=== PATIENT | female | born 1985 | race Two or more races ===

== ENCOUNTER 2019-12-25 13:24 | Emergency (ER) | payer OTHER, MEDICAID ==
[~2019-12-25] VITALS: Ht 170.2 cm; Wt 59.0 kg
[2019-12-25 13:36] VITALS: BP 182/89
== END 2019-12-25 14:56 | disposition home or self-care (01) ==
LOC: EDBD 13:24 → EDUNIT# 13:24 → ER 13:24
DX: S16.1XXA Strain of muscle, fascia and tendon at neck level, initial encounter (principal); S29.012A Strain of muscle and tendon of back wall of thorax, initial encounter; V43.52XA Car driver injured in collision with other type car in traffic accident, initial encounter; Y93.89 Activity, other specified; Y92.488 Other paved roadways as the place of occurrence of the external cause; Y99.8 Other external cause status
CPT/HCPCS: 72040; 72070

== ENCOUNTER 2021-02-25 07:49 | Emergency (ER) | payer MEDICAID, OTHER ==
[~2021-02-25] VITALS: Ht 167.6 cm; Wt 77.1 kg
[2021-02-25 08:14] VITALS: BP 131/89
[2021-02-25] MEDS ORDERED: LIDOCAINE 1% HCL (LOCAL ANESTH.) INJ 20ML MDV IJ ONE (08:15)
[2021-02-25] MEDS ORDERED: TETANUS-DIPTH-ACEL PERTUSSIS 0.5ML SYR Tdap IM ONE (08:30)
== END 2021-02-25 09:02 | disposition home or self-care (01) ==
LOC: ER 07:49
DX: O26.891 Other specified pregnancy related conditions, first trimester (principal); S01.511A Laceration without foreign body of lip, initial encounter; Z88.8 Allergy status to other drugs, medicaments and biological substances; Z3A.11 11 weeks gestation of pregnancy; Y04.2XXA Assault by strike against or bumped into by another person, initial encounter; Y93.89 Activity, other specified; Y92.89 Other specified places as the place of occurrence of the external cause; Y99.8 Other external cause status
CPT/HCPCS: 12013; 90471; 90715; 99283; J2001

== ENCOUNTER 2021-07-15 08:40 | Observation (INO) | payer MEDICAID ==
[~2021-07-15] VITALS: Ht 167.6 cm; Wt 61.2 kg
[2021-07-15] MEDS: TERBUTALINE SULFATE 1 MG/ML 1ML VIAL SC SCH ×2 (09:12→10:00)
[2021-07-15] MEDS ORDERED: PREN-96 PO (09:56)
== END 2021-07-15 10:35 | disposition home or self-care (01) ==
LOC: LDRP 08:40
PROVIDERS: ADMIT Obstetrics & Gynecology; ATTEND Obstetrics & Gynecology
DX: O60.03 Preterm labor without delivery, third trimester (principal); Z3A.31 31 weeks gestation of pregnancy
CPT/HCPCS: 59025; 81002; 94760; 96372; G0378; G0379; J3105

== ENCOUNTER 2021-08-25 21:54 | Observation (INO) | payer MEDICAID ==
[~2021-08-25 21:54] MED LIST: PREN-96 PO
== END 2021-08-25 22:33 | disposition left against medical advice (07) ==
LOC: LDRP 21:54
PROVIDERS: ADMIT Obstetrics & Gynecology; ATTEND Obstetrics & Gynecology
DX: O62.9 Abnormality of forces of labor, unspecified (principal); Z3A.36 36 weeks gestation of pregnancy
CPT/HCPCS: 59025; 81002; G0378; G0379

== ENCOUNTER 2021-09-05 09:30 | Observation (INO) | payer MEDICAID | END 2021-09-05 11:00 | disposition home or self-care (01) | LOC: LDRP 09:30 | PROVIDERS: ADMIT Obstetrics & Gynecology Obstetrics; ATTEND Obstetrics & Gynecology Obstetrics | DX: O47.1 False labor at or after 37 completed weeks of gestation (principal); O46.93 Antepartum hemorrhage, unspecified, third trimester; O62.9 Abnormality of forces of labor, unspecified; Z3A.38 38 weeks gestation of pregnancy | CPT/HCPCS: 59025; 81002; G0378; G0379 ==

== ENCOUNTER 2024-01-28 15:58 | Emergency (ER) | payer MEDICAID ==
[~2024-01-28] VITALS: Ht 167.6 cm; Wt 85.7 kg
[2024-01-28 16:01] VITALS: BP 113/83; PULSE 118; RESP 18; O2SAT 100
== END 2024-01-28 18:34 | disposition left against medical advice (07) ==
LOC: ER 15:58
DX: R44.3 Hallucinations, unspecified (principal)

== ENCOUNTER 2024-09-22 00:58 | Emergency (ER) | payer MEDICAID ==
[~2024-09-22] VITALS: Ht 167.6 cm; Wt 95.3 kg
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
[2024-09-22 01:53] LABS: Chloride 106 mmol/L (98-107); Potassium 3.6 mmol/L (3.5-5.1); Sodium 138 mmol/L (136-145)
[2024-09-22 01:54] LABS: Anion Gap 8 (5-15); Basophils # (auto) 0 10 ^3/uL (0-0.2); Basophils % (auto) 0.4 % (0.0-2.0); Carbon Dioxide 24 mmol/L (20-31); Eosinophils # (auto) 0 10 ^3/uL (0-0.8); Eosinophils % (auto) 0.4 % (0.0-7.0); Hematocrit 35.4 % (36.0-46.0); Hemoglobin 11.8 g/dL (12.2-16.2); Lymphocytes # (auto) 0.8 10 ^3/uL (0.4-5.4); Lymphocytes % (auto) 8.6 % (10.0-50.0); Mean Corpuscular Hemoglobin 31.8 pg (28.0-32.0); Mean Corpuscular Hgb Conc. 33.3 g/dL (32.0-36.0); Mean Corpuscular Volume 95.4 fL (80.0-100.0); Monocytes # (auto) 0.8 10 ^3/uL (0-1.3); Monocytes % (auto) 8.7 % (0.0-12.0); Neutrophils # (auto) 7.6 10 ^3/uL (1.6-8.6); Neutrophils % (auto) 81.9 % (37.0-80.0); Nucleated Red Blood Cells % 0.1 %; Platelet Count (auto) 194 10^3/uL (140-450); Red Blood Cells 3.71 10^6/uL (4.0-5.20); Red Cell Distribution Width 13.3 % (11.8-14.3); White Blood Cell 9.3 10^3/uL (4.4-10.8)
[2024-09-22 01:55] LABS: Calcium 9.8 mg/dL (8.7-10.4)
[2024-09-22 01:59] LABS: Glucose 96 mg/dL (74-106)
[2024-09-22 02:00] LABS: Blood Urea Nitrogen 9 mg/dL (9-23)
[2024-09-22 03:04] LABS: Urine Bacteria FEW /hpf (None Seen); Urine Blood Negative /uL (Negative); Urine Budding Yeast OCCASIONAL /hpf (None Seen); Urine Clarity Turbid (Clear); Urine Color Light-Yellow (Yellow); Urine Mucus FEW (None Seen); Urine Protein, UAD 1+ (Negative); Urine Specific Gravity 1.016 (1.001-1.035); Urine Squamous Epithelial Cell FEW /hpf (<5); Urine Urobilinogen Normal (Negative); Urine WBC 1 /hpf (0 - 5)
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
[2024-09-22 06:32] VITALS: BP 127/84; PULSE 95; TEMP 98.5; O2SAT 99
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
[2024-09-22 07:20] VITALS: RESP 18
== END 2024-09-22 07:23 | disposition home or self-care (01) ==
LOC: EDBD 00:58 → ER 00:58
DX: O09.32 Supervision of pregnancy with insufficient antenatal care, second trimester (principal); O26.892 Other specified pregnancy related conditions, second trimester; M79.18 Myalgia, other site; R51.9 Headache, unspecified; R10.2 Pelvic and perineal pain; Z3A.17 17 weeks gestation of pregnancy; Z88.5 Allergy status to narcotic agent; Z88.8 Allergy status to other drugs, medicaments and biological substances; Y04.8XXA Assault by other bodily force, initial encounter; Y93.89 Activity, other specified; Y92.89 Other specified places as the place of occurrence of the external cause; Y99.8 Other external cause status
CPT/HCPCS: 36415; 70450; 71045; 76805; 80048; 81001; 84702; 85025

== ENCOUNTER 2024-10-16 22:46 | Emergency (ER) | payer MEDICAID ==
[~2024-10-16] VITALS: Ht 167.6 cm; Wt 95.1 kg
[2024-10-16 23:24] VITALS: BP 105/69; PULSE 104; RESP 20; O2SAT 98
[2024-10-16 23:59] LABS: Basophils # (auto) 0 10 ^3/uL (0-0.2); Basophils % (auto) 0.4 % (0.0-2.0); Eosinophils # (auto) 0.1 10 ^3/uL (0-0.8); Eosinophils % (auto) 1.5 % (0.0-7.0); Hematocrit 34.7 % (36.0-46.0); Hemoglobin 11.6 g/dL (12.2-16.2); Lymphocytes # (auto) 1.8 10 ^3/uL (0.4-5.4); Lymphocytes % (auto) 21.5 % (10.0-50.0); Mean Corpuscular Hemoglobin 32.3 pg (28.0-32.0); Mean Corpuscular Hgb Conc. 33.6 g/dL (32.0-36.0); Mean Corpuscular Volume 96.3 fL (80.0-100.0); Monocytes # (auto) 0.8 10 ^3/uL (0-1.3); Monocytes % (auto) 9.2 % (0.0-12.0); Neutrophils # (auto) 5.6 10 ^3/uL (1.6-8.6); Neutrophils % (auto) 67.4 % (37.0-80.0); Platelet Count (auto) 181 10^3/uL (140-450); Red Cell Distribution Width 13.4 % (11.8-14.3); White Blood Cell 8.2 10^3/uL (4.4-10.8)
[2024-10-17 00:08] LABS: Sodium 137 mmol/L (136-145)
[2024-10-17 00:09] LABS: Anion Gap 8 (5-15); Calcium 9.5 mg/dL (8.7-10.4); Carbon Dioxide 22 mmol/L (20-31)
[2024-10-17 00:14] LABS: BUN/Creatinine Ratio 13.9 (10.0-20.0); Blood Urea Nitrogen 10 mg/dL (9-23); Lipase 49 U/L (12-53)
[2024-10-17 00:15] LABS: Chloride 107 mmol/L (98-107); Glucose 124 mg/dL (74-106)
[2024-10-17 00:23] LABS: Urine Bacteria None Seen /hpf (None Seen)
[2024-10-17 00:37] LABS: Urine Blood Negative /uL (Negative); Urine Clarity Clear (Clear); Urine Color Light-Yellow (Yellow); Urine Mucus FEW (None Seen); Urine Protein, UAD Negative (Negative); Urine Squamous Epithelial Cell FEW /hpf (<5); Urine Urobilinogen Normal (Negative); Urine WBC <1 /hpf (0 - 5)
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
--- NOTE | 2024-10-17 02:09 | DVH ---
US KIDNEY HISTORY: flank pain COMPARISON: None TECHNIQUE: Transverse and longitudinal grayscale and color Doppler images were obtained of the kidney s and bladder. FINDINGS: Right kidney: Size: 9.3 cm Cortical thickness: Normal Echogenicity: Normal Stones: None Masses: None Hydronephrosis: None Ureters: Not well visualized. Other: None Left kidney: Size: 10.5 cm Cortical thickness: Normal Echogenicity: Normal Stones: None Masses: None Hydronephrosis: None Ureters: Not well visualized. Other: None Bladder: Contracted Other: None. IMPRESSION: No sonographic evidence of acute renal abnormalities.
--- NOTE | 2024-10-17 02:37 | DVH ---
Examination: ABDL CLINICAL INDICATION: RUQ. COMPARISON: None. TECHNIQUE: Using real-time ultrasonic imaging the abdomen was examined. FINDINGS: The liver is normal in size and measures 15.9 cm. It demonstrates smooth border and normal echogenic ity, with no evidence of intrahepatic ductal dilatation. Hepatic veins are patent. Main portal vein shows normal hepatopetal flow. The gallbladder shows normal morphology with no stones. The gallbladder wall is not thickened and ed sures 2.8 mm. The common bile duct measures 3 mm anteroposteriorly, which is normal. The pancreas appears to be normal. Right kidney demonstrates normal morphology and cortical echogenicity, with no evidence of stones, ma sses or hydronephrosis. Right kidney measures 9.9 cm. IMPRESSION: No significant abnormality is noted in this study. Electronically Signed 10/17/2024 02:36 Akhil Marroquin
[2024-10-17] MEDS ORDERED: MORPHINE SULFATE INJ 2 MG/ml SYRG IV ONE (03:00)
--- NOTE | 2024-10-17 03:09 | DVH ---
Examination: OBUS CLINICAL INDICATION: Abdominal pain. COMPARISON: None. TECHNIQUE: Transabdominal second-trimester OB ultrasound was performed. FINDINGS: : Normal single live intrauterine gestation in cephalic presentation. Placenta: Posterior, grade I maturity. No retroplacental collection. No evidence of placenta previa o r abruption. Cardiac Activity and Movements: Present and well appreciated. Measurements: BPD: 4.88 cm, corresponding to 20 weeks 5 days.HC: 17.8 cm, corresponding to 20 weeks 2 days.AC: 15.7 6 cm, corresponding to 20 weeks 6 days.FL: 3.49 cm, corresponding to 21 weeks 0 day. Estimated Weight (EFW): 381.24 g. Average Gestational Age (AGA) by Ultrasound: 20 weeks 5 days. HOLGER by Ultrasound: March 01, 2025. Heart Rate: 153 bpm. Amniotic Fluid Index (KAILEE): Adequate. Anatomy: No gross structural abnormalities observed. Cervical Findings: Cervical length: 4.3 cm.Internal os: Closed. IMPRESSION: 1. Single live intrauterine gestation at 20 weeks 5 days by ultrasound. 2. Fetus in cephalic presentation with normal anatomy; no gross structural abnormalities identified. 3. Posterior placenta, grade I maturity, with no evidence of placenta previa, abruption, or retropla cental collection. 4. Adequate KAILEE and normal heart rate (153 bpm). 5. Cervical length is adequate at 4.3 cm, and internal os is closed. Electronically Signed 10/17/2024 03:08 Akhil Marroquin
[2024-10-17 03:56] LABS: Amphetamine Screen, Urine Neg (NEGATIVE); Barbiturate Scree,Urine Neg (NEGATIVE); Benzodiazephine Screen, Urine Neg (NEGATIVE); Cannabinoid Screen, Urine Neg (NEGATIVE); Cocaine Screen, Urine Neg (NEGATIVE); Opiate Scree,Urine Neg (NEGATIVE); Phencyclidine Screen, Urine Neg (NEGATIVE)
[2024-10-17] MEDS: MORPHINE SULFATE INJ 2 MG/ml SYRG IM ONE (03:56)
== END 2024-10-17 03:57 | disposition home or self-care (01) ==
LOC: ER 22:46
DX: O26.892 Other specified pregnancy related conditions, second trimester (principal); R10.11 Right upper quadrant pain; Z88.5 Allergy status to narcotic agent; Z3A.20 20 weeks gestation of pregnancy
CPT/HCPCS: 36415; 76705; 76775; 76805; 80048; 80307; 81001; 83690; 84702; 85025

== ENCOUNTER 2024-11-27 20:24 | Observation (INO) | payer MEDICAID ==
[~2024-11-27] VITALS: Ht 167.6 cm; Wt 93.9 kg
[2024-11-27] MEDS ORDERED: LACTATED RINGER'S 1,000 ML IV ONE (21:27)
--- NOTE | 2024-11-28 15:55 | DVHDS2 ---
Physician Discharge Progress N Final Diagnosis: 29WKS CRAMPING Operations or Procedures: Operations or Procedures NST 29WKS,SONO Condition on Discharge: Good Disposition: Home Discharge Instructions: Diet: Regular Activity: No Restrictions, As Tolerated Follow Up/Referral: Please follow up with your [facility] as soon as possible. For any pregancy concerns or issues please go to the nearest hospital. Medications: None Follow Up Care: Specialist: 3D Discharge Statement: "Patient was advised to return to the ER or call 911 if any headaches, dizziness, shortness of breath, chest pain, abdominal pain, bleeding, fevers, or worsening of medical condition. Patient was counseled about treatment plan, medications, possible side effects, patientverbalized understanding. All questions were answered to the best of my ability. This discharge took greater then 30 minutes in planning, reviewing documentation, counseling the patient, and discussing with other team members." Visit Coding OBGYN Date of Service: Nov 28, 2024 Billing Provider: TALON MARQUEZ DO [employer] Common Visit Codes: 62908-[id number] INP/OBS CARE(HIGH) [employer] Procedure Codes: 51820-85- NON-STRESS TEST TALON MARQUEZ DO Nov 28, 2024 15:55
== END 2024-11-27 23:31 | disposition home or self-care (01) ==
LOC: LDRP 20:24
PROVIDERS: ADMIT Obstetrics & Gynecology; ATTEND Obstetrics & Gynecology
DX: O62.9 Abnormality of forces of labor, unspecified (principal); O34.63 Maternal care for abnormality of vagina, third trimester; N89.8 Other specified noninflammatory disorders of vagina; Z3A.29 29 weeks gestation of pregnancy; Z79.899 Other long term (current) drug therapy; Z98.890 Other specified postprocedural states
CPT/HCPCS: 59025; 81002; 94760; 96360; 96361; G0378

== ENCOUNTER 2025-03-14 16:26 | Emergency (ER) | payer MEDICAID ==
[~2025-03-14] VITALS: Ht 172.7 cm; Wt 80.0 kg
[2025-03-14 16:35] VITALS: BP 141/85; PULSE 120; TEMP 97.7
[2025-03-14] MEDS ORDERED: DexAMETHasone SOD PHOS 10MG/1ML VIAL INJ IM ONE (16:45)
[2025-03-14 16:55] VITALS: RESP 14; O2SAT 100
[2025-03-14] MEDS: ALBUTEROL SULF 2.5 MG/0.5ML(0.5%) NEB SOLN NEB ONE (16:55)
[2025-03-14] MEDS: IPRATROPIUM BROM 0.5 MG/2.5ML INH SOL NEB ONE (16:55)
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
[2025-03-14 17:11] LABS: Basophils # (auto) 0 10 ^3/uL (0-0.2); Basophils % (auto) 0.5 % (0.0-2.0); Eosinophils # (auto) 0.1 10 ^3/uL (0-0.8); Eosinophils % (auto) 1.2 % (0.0-7.0); Hematocrit 38.6 % (36.0-46.0); Lymphocytes # (auto) 1.4 10 ^3/uL (0.4-5.4); Lymphocytes % (auto) 24.2 % (10.0-50.0); Mean Corpuscular Hemoglobin 32.4 pg (28.0-32.0); Mean Corpuscular Hgb Conc. 33.7 g/dL (32.0-36.0); Monocytes # (auto) 0.5 10 ^3/uL (0-1.3); Monocytes % (auto) 7.6 % (0.0-12.0); Neutrophils # (auto) 3.9 10 ^3/uL (1.6-8.6); Neutrophils % (auto) 66.5 % (37.0-80.0); Nucleated Red Blood Cells % 0.1 %; Platelet Count (auto) 222 10^3/uL (140-450); Potassium 3.5 mmol/L (3.5-5.1); Red Blood Cells 4.02 10^6/uL (4.0-5.20); Red Cell Distribution Width 13.5 % (11.8-14.3); Sodium 143 mmol/L (136-145); White Blood Cell 5.9 10^3/uL (4.4-10.8)
[2025-03-14 17:12] LABS: Anion Gap 9 (5-15); Carbon Dioxide 25 mmol/L (20-31)
[2025-03-14 17:13] LABS: Calcium 9.2 mg/dL (8.7-10.4)
[2025-03-14 17:17] LABS: Glucose 83 mg/dL (74-106)
[2025-03-14 17:23] LABS: BUN/Creatinine Ratio 6.5 (10.0-20.0); Blood Urea Nitrogen 9 mg/dL (9-23); Chloride 109 mmol/L (98-107)
== END 2025-03-14 17:18 | disposition left against medical advice (07) ==
LOC: EDBD 16:26 → ER 16:28
DX: F29 Unspecified psychosis not due to a substance or known physiological condition (principal); R06.02 Shortness of breath
CPT/HCPCS: 36415; 80048; 85025; 94640